=== PATIENT | female | born 1930 | race Caucasian/White ===

== ENCOUNTER 2019-10-22 12:10 | Inpatient (IN) ==
[2019-10-22] MEDS ORDERED: DUONEB (A & A) INH ONE (12:29)
[2019-10-22] MEDS ORDERED: ZOSYN 4.5 GM in NS 100 ML IV ONE (12:29)
[2019-10-22] MEDS ORDERED: VANCOMYCIN 1 GM/NS 1 GM/250 ML IVPB IV ONE (12:29)
[2019-10-22] MEDS ORDERED: NS 500 ML IV ONE (12:30)
--- NOTE | 2019-10-22 13:15 | Diag Imaging Result Doc PS360 ---
EXAM: CHEST-1 VIEW - 10/22/2019 HISTORY: cough, fever TECHNIQUE: Portable chest one view COMPARISON: 07/08/2019 FINDINGS: There is chronic elevation right hemidiaphragm similar to prior. There is ill-defined infrahilar infiltrate on the left. There is a small left pleural effusion. There is no evidence of pneumothorax. Heart size appears within normal limits. There is possible calcified mitral valve annulus noted. IMPRESSION: Ill-defined infrahilar infiltrate on the left. Small left pleural effusion. Electronically signed by Jeffrey Ureña 10/22/2019 1:13 PM
[2019-10-22 13:33] LABS: URINE SOURCE CATH
[2019-10-22 13:44] LABS: BILIRUBIN URINE NEGATIVE (NEGATIVE); BLOOD URINE NEGATIVE (NEGATIVE); COLOR YELLOW; GLUCOSE URINE NEGATIVE (NEGATIVE); KETONE URINE NEGATIVE (NEGATIVE); LEUKOCYTES URINE LARGE (NEGATIVE); NITRITE URINE NEGATIVE (NEGATIVE); PROTEIN URINE NEGATIVE (NEGATIVE); SP GRAVITY URINE 1.009; TURBIDITY URINE CLEAR (CLEAR); UROBILINOGEN URINE NORMAL (NORMAL)
[2019-10-22 13:46] LABS: UR EPITHELIAL CELLS <10 /HPF (<10); URINE BACTERIA 4+ /HPF; URINE RBC <10 /HPF (<10); URINE WBC TNTC /HPF (<10)
[2019-10-22 13:46] LABS: BASO# 0.04 X1000 (0.0-0.2); BASO% 0.3 % (0.0-0.8); EOS# 0.05 X1000 (0.0-0.7); EOS% 0.4 % (0.0-10.0); HEMATOCRIT 36.1 % (37.0-47.0); IMM GRAN# 0.03 X1000 (0.0-0.04); IMM GRAN% 0.2 % (0.0-0.5); LYMPH# 1.14 X1000 (1.2-3.4); LYMPH% 8.6 % (20.5-51.1); MCH 28.9 PG (27-31); MCHC 30.5 g/dL (33-37); MONO# 0.96 X1000 (0.11-0.59); MONO% 7.2 % (1.7-9.3); MPV 11.9 FL (7.4-10.4); NEUT# 11.03 X1000 (1.4-6.5); NEUT% 83.3 % (42.2-75.2); PLT 243 X1000 (130-400); RDW 14.2 % (11.5-14.5); WBC 13.25 X1000 (4.8-10.8)
[2019-10-22 13:51] LABS: INR 1.1; PROTIME 14.3 Seconds (11.0-16.0)
[2019-10-22 13:52] LABS: PTT 27.4 Seconds (22.3-41.8)
[2019-10-22 14:03] LABS: ALB/GLOB RATIO 0.8; ALBUMIN 2.9 g/dL (3.5-5.0); CALCIUM 9.5 mg/dL (8.8-10.2); CREATININE 1.2 mg/dL (0.5-0.9); MAGNESIUM 2.1 mg/dL (1.5-2.7); POTASSIUM 4.2 mmol/L (3.5-5.1); TOTAL BILIRUBIN 0.16 mg/dL (0.20-1.00); TOTAL PROTEIN 6.5 g/dL (6.3-8.3)
[2019-10-22] MEDS ORDERED: LASIX IV ONE (14:11)
[2019-10-22] MEDS ORDERED: SOLU-MEDROL IV ONE (14:15)
[2019-10-22] MEDS ORDERED: LEVAQUIN 750 MG/D5W 750 MG/150 ML IVPB IV ONE (14:15)
[2019-10-22] MEDS ORDERED: TYLENOL PO PRN (14:19)
--- NOTE | 2019-10-22 14:19 | PROVIDER DOCUMENTATION ---
This chart was entered by Hannah Cohn Scribe, acting as scribe for Turner Zaidi MD. HPI-General Adult - General Chief Complaint: Cough Stated Complaint: COUGH Time Seen by Provider: 10/22/19 12:22 Source: RN/, EMS Allergies/Adverse Reactions: Patient Allergies Allergy/AdvReac Type Severity Reaction Status Date / Time pentazocine lactate * Allergy Unknown Unknown Verified 07/08/19 09:34 [From [facility]] Home Medications: Home Medication List Medication Instructions Recorded Confirmed Last Taken Type Aspirin [Ecotrin] 81 mg PO DAILY 03/15/16 12/16/17 12/16/17 08:00 History Calcitonin,Nelson,Synthetic 1 spray INH DIRECTED 03/15/16 12/16/17 12/16/17 08:00 History [Miacalcin] Calcium Carbonate/Vit D3 [Caltrate 1 tab PO BID 03/15/16 12/16/17 12/16/17 08:00 History 600 + D] Docusate Sodium [Colace] 100 mg PO BID 03/15/16 12/16/17 12/15/17 21:00 History Donepezil [Aricept] 10 mg PO DAILY 03/15/16 12/16/17 12/16/17 08:00 History Felodipine [Felodipine ER] 5 mg PO DAILY 03/15/16 12/16/17 12/15/17 08:00 Histo ry Iron Carbonyl/Ascorbic Acid 1 tab PO DAILY 03/15/16 12/16/17 07/14/17 09:00 History [Icar-C] Magnesium Hydroxide [Milk of 30 ml PO DIRECTED 03/15/16 12/16/17 12/16/17 08:00 History Magnesia] Melatonin 3 mg PO QHS 03/15/16 12/16/17 12/15/17 21:00 History Memantine HCl [Namenda] 10 mg PO BID 03/15/16 12/16/17 07/14/17 21:00 History Multivit,Fe,Ca,FA & Min [Thera M 1 tab PO DAILY 03/15/16 12/16/17 12/16/17 08:00 History Plus] Ranitidine [Zantac] 150 mg PO BID 03/15/16 12/16/17 12/16/17 08:00 History SIMVAstatin [Zocor] 40 mg PO QHS 03/15/16 12/16/17 12/15/17 21:00 History Potassium Chloride E.r. [Klor-Con] 20 meq PO BID #0 03/23/16 12/16/17 12/16/17 08:00 Rx Fluvoxamine [Luvox] 100 mg PO HS 10/25/17 12/16/17 12/15/17 21:00 History Prednisone 5 mg PO DAILY 10/25/17 12/16/17 12/16/17 08:00 History Furosemide [Lasix] 20 mg PO DAILY #30 tab 11/01/17 12/16/17 12/16/17 08:00 Rx Gabapentin [Neurontin] 300 mg PO TID #90 cap 11/01/17 12/16/17 12/16/17 08:00 Rx Hydrocodone/APAP 5 mg/325 mg 1 ea PO Q4-6H PRN PRN #10 tab 11/01/17 12/16/17 12/16/17 08:00 Rx [Elliott-5] Ciprofloxacin [Cipro] 250 mg PO BID #14 tab 07/08/19 Unknown Rx - History of Present Illness -Gen Adult Nature of Presenting Problems: pt is an 88 yowf arriving via ems w/cc rn rpts ems sts pt's family wants her evaluated for increased cough and congestion. pt has hx of copd, wears 3L o2 constantly, and alz and is at baseline in rom. pt sts she quit smoking. pt last breathing tx 1 hr area captain. pt resides in intermediate. pt is [facility].pt followed by Dr. Mac. allergy to pentazocine Location of Pain/Injury: reports: none Pain Radiation: reports: no radiation Quality of Pain: reports: none Severity: reports: mild Onset/Duration: reports: unsure Timing: reports: still present Context/Activities at Onset: reports: none Modifying Factors: improves with: nothing Associated Symptoms: reports: cough, sinus congestion/drainage Review of Systems - Adult - REVIEW OF SYSTEMS - ADULT ROS:: limited per condition Constitutional: reports: no symptoms reported. denies: chills, fever, fatique Eyes: reports: no symptoms reported Ears, Nose, Mouth & Throat: reports: see HPI, sinus problem (congestion). denies: ear pain, nose pain, throat pain Cardiovascular: reports: no symptoms reported Respiratory: reports: see HPI, cough. denies: dyspnea on exertion, shortness of breath, wheezing Gastrointestinal: reports: no symptoms reported Genitourinary: reports: no symptoms reported Musculoskeletal: reports: no symptoms reported Integumentary: reports: no symptoms reported Neurological: reports: no symptoms reported Psychiatric: reports: no symptoms reported Endocrine: reports: no symptoms reported Hematologic/Lymphatic: reports: no symptoms reported Allergic/Immunologic: reports: no symptoms reported All Other Systems: Reviewed and Negative Past History - Adult - PAST MEDICAL HISTORY-ADULT Review of Records: reports: Nursing Assessment Review, Medications Reviewed, Social history reviewed & non-contributory. Major Childhood Illnesses: reports: denies history Cardiovascular: reports: CHF, HTN, hyperlipidemia Respiratory: reports: COPD Gastrointestinal: reports: cancer (colon), GERD, GI bleed (lower/required blood) Obstetrical/Gynecological: reports: uterine/ovarian cancer Genitourinary: reports: denies history Musculoskeletal: reports: denies history Neurological: reports: Alzheimer's, CVA, dementia, TIA Psychiatric: reports: anxiety, other (insomnia) Endocrine/Immune: reports: denies history Other Conditions: reports: denies history - PRIOR SURGERIES/PROCEDURES Surgical/Procedure History: reports: hysterectomy, bowel surgery (colon resection), joint replacement (shoulder), other - PRIOR HOSPITALIZATIONS Prior Hospitalizations: reports: for similar symptoms - IMMUNIZATION STATUS Childhood Immunizations: See Nurse Assessment Flu Vaccine: See Nurse Assessment - FAMILY HISTORY Family History: reviewed, not pertinent - SOCIAL HISTORY Smoking: other (former smoker) Substance Use: none/never Physical Exam-General - PHYSICAL EXAM-ADULT Initial Vital Signs Reviewed: Yes - CONSTITUTIONAL General Appearance: appears well, alert, no apparent distress, thin. negative: lethargic, slow to respond, obtunded - EYES Eyes: pink conjunctivae, other (mild pinpoint pupils). negative: PERRL/EOMI - HEAD, EARS, NOSE, MOUTH & THROAT HENMT: normocephalic/atraumatic, hearing deficit. negative: moist mucous membranes (dry mucous membranes), normal ENT inspection, angioedema - NECK Neck: non-tender, full range of motion, supple, normal inspection - RESPIRATORY Respiratory: chest non-tender, normal breath sounds, no pleuratic chest pain, no respiratory distress, no accessory muscle use, rhonchi (diffuse), increased rate (mild tachypnea). negative: lungs clear, accessory muscle use, crackles, rales, pain on inspiration, pleural rub, retractions - CARDIOVASCULAR Cardiovascular: normal peripheral pulses, no edema, no gallop, no JVD, no murmur , extra beats (occ ectopic beats). negative: regular rate, rhythm, friction rub, irregularly irregular - GASTROINTESTINAL (ABDOMEN) Abdominal Exam: normal bowel sounds, non tender, soft - MUSCULOSKELETAL Back Exam: normal inspection Extremity: normal range of motion, non-tender, normal inspection, normal c apillary refill. negative: pedal edema, slow capillary refill, swelling, tenderness Peripheral Pulses: radial (R): 2+, radial (L): 2+ - SKIN Integumentary: normal color, normal turgor, warm/dry - NEUROLOGIC Neurologic: grossly normal, no motor/sensory deficits, other (pt is at baseline, hx alz). negative: aphasia, focal weakness, motor weakness - PSYCHIATRIC Psych/Mental Status: normal mood/affect, normal thought content, normal thought process, oriented x 3 Progress - PLAN OF CARE/RESULTS Progress/Plan/Lab Results: Vital Signs - 8 hr 10/22/19 12:20 Temperature 98.5 F Pulse Rate 87 Respiratory Rate 20 Blood Pressure 118/65 O2 Sat by Pulse Oximetry 97 Result Diagrams: 10/22/19 12:58 10/22/19 12:58 - REASSESSMENT Reassessment #1 Time Reassessed: 14:15 Status: improving (Patient has HCAP and UTI, sepsis without end organ damage, and also has exacerbation of CHF/ Patient givne IVF and lasix, IV zosyn/vanc/levaquin. Also given duoneb and solumedrol) - XRAY 1 XRAY Study: Chest Impression: Abnormal, See EMR Report (EXAM: CHEST-1 VIEW - 10/22/2019 HISTORY: cough, fever TECHNIQUE: Portable chest one view COMPARISON: 07/08/2019 FINDINGS: There is chronic elevation right hemidiaphragm similar to prior. There is ill-defined infrahilar infiltrate on the left. There is a small left pleural effusion. There is no evidence of pneumothorax. Heart size appears within normal limits. There is possible calcified mitral valve annulus noted. IMPRESSION: Ill-defined infrahilar infiltrate on the left. Small left pleural effusion. Electronically signed by Jeffrey Ureña 10/22/2019 1:13 PM) - CONSULTS/PCP/HOSPITALIST Notification #1 *Consult/PCP/Hospitalist*: Topher Time Discussed: 14:14 Consult Disposition: Admit Departure - Departure Date of Disposition Decision: 10/22/19 Time of Disposition Decision: 14:17 DIAGNOSIS: UTI (urinary tract infection), bacterial Left lower lobe pneumonia Qualifiers: Pneumonia type: due to unspecified organism Qualified Code(s): J18.1 - Lobar pneumonia, unspecified organism Sepsis without acute organ dysfunction Qualifiers: Sepsis type: sepsis due to unspecified organism Qualified Code(s): A41.9 - Sepsis, unspecified organism Acute exacerbation of CHF (congestive heart failure) Qualifiers: Heart failure type: combined systolic and diastolic Qualified Code(s): I50.43 - Acute on chronic combined systolic (congestive) and diastolic (congestive) heart failure Disposition: ADMITTED INPATIENT 09 Certified Medical Emergency: Emergent Condition: Fair Referrals and Follow-Ups: Richard Obando MD [Primary Care Provider] - - Critical Care Note This patient required my direct & personal management of CC.: Yes Total Time (mins): 40 (multiple meds givne for complex diagnosis and sepsis/CHF/HCAP/UTI) Critical Care Statement: This patient required my direct personal management to treat or rule out processes, the absence of which, could potentiallly result in sudden, clinically significant life or limb threatening deterioration. Attestation - Physician/ BRAD Attestation Patient care was provided by Advanced Practice Provider:: No The physician spent face to face time with patient:: Yes Advanced Practice Provider documentation review:: Supervising physician onsite and consulted in the evaluation and care of this patient. The physician did have a face to face encounter with the patient. This chart was documented by the indicated scribe, (Hannah Cohn Scribe) and accurately reflects the services I performed and decisions made by me, Turner Zaidi MD, as attested by the provider's signature.
[2019-10-22] MEDS ORDERED: NS 1,000 ML IV ONE (14:21)
[2019-10-22 14:51] LABS: ALLEN TEST YES; BE 12.4 mmoll (-3.0-3.0); BLOOD TYPE ARTERIAL; HCO3-(ACT) 34.6 mmoll (20.0-26.0); METHB 0.8 % (0.0-1.5); O2(CT) 14.8 mL/dL (15.0-23.0); PO2(98.6) 105 mmHg (60-100); SAMPLE BLOOD; THB 10.7 g/dL (11.5-17.4); pH(98.6) 7.42 (7.35-7.45)
[2019-10-22 14:52] LABS: MODALITY CANNULA; PCO2(98.6) 60 mmHg (35-45)
[2019-10-22] MEDS: ZOFRAN PO PRN (15:04)
[2019-10-22] MEDS ORDERED: DUONEB (A & A) INH SCH (15:30)
[2019-10-22] MEDS: DUONEB (A & A) INH SCH ×2 (19:33→23:05)
[2019-10-22 21:23] LABS: HEMOGLOBIN A1C 5.7 % (4.8-6.0)
--- NOTE | 2019-10-22 21:57 | HISTORY AND PHYSICAL ---
CHIEF COMPLAINT: Cough and chest congestion. Ms Phillip, 88-year-old white female patient, resident of [facility], complaining of increasing cough, chest congestion, mild shortness of breath, chest soreness when she coughs. The patient was brought to the emergency room where she found to have pneumonia and also UTI. There was concern about sepsis and patient was admitted for further care. The patient's oral intake was poor. Unquantified weight loss. Patient did have minimally increased shortness of breath, poor oral intake. According to family, the patient also had increasing confusion and disorientation at the intermediate. She did have chest soreness when she coughs, vague abdominal pain. No sinus drainage. The patient did have a scratchy throat. She denied any hemoptysis. No dysphagia or odynophagia. The patient does have vague abdominal pain. No nausea or vomiting. No diarrhea, blood, or mucus in the stool. The patient does have chronic diffuse abdominal pain, at times back pain, pain in the shoulder. The patient does have chronic pain on pain medication. No heat or cold intolerance. At times, polyuria, polydipsia. The patient does feel fatigued, tired, and no energy. The patient does have at times problems with recent memory, situational depression. ALLERGIES: Pentazocine lactate. CURRENT MEDICATIONS: Includes aspirin, Miacalcin nasal spray, calcium with vitamin D, Colace, Aricept, Namenda, felodipine, Icar-C, milk of magnesia, melatonin, Namenda, multivitamin, Zantac, Zocor, potassium, Luvox, prednisone, Lasix, Neurontin, [place]. PAST MEDICAL HISTORY: Significant for Alzheimer type dementia, hypertension, hyperlipidemia, congestive heart failure, osteoarthritis, chronic pain, gastritis, polymyalgia rheumatica, congestive heart failure, history suggestive of COPD, patient has a history of colon cancer and surgery. PERSONAL HISTORY: Single, nonsmoker. Denied alcohol or substance abuse. Needs assistance in activities of daily living. FAMILY HISTORY: Significant for arthritis, COPD. REVIEW OF SYSTEMS: As per HPI. PHYSICAL EXAMINATION: GENERAL: Elderly white female patient in mild distress. VITAL SIGNS: Blood pressure 118/65, pulse 87, respirations 20, temperature 98.5 degrees. SKIN: Senile turgor. HEENT: Head atraumatic, normocephalic. [place] conjunctivae. Anicteric sclerae. Extraocular muscle movement normal. Fundus cannot be penetrated. Good oral hygiene. No tonsillopharyngeal congestion or exudate. Ears and nose benign. NECK: Supple. No JVD, thyromegaly or lymphadenopathy. CHEST: Bilateral good air entry present. Few inspiratory crepitation left base. CARDIOVASCULAR: S1 and S2 heard. No gallop or thrill, 2/6 systolic murmur at the apex. ABDOMEN: Soft, scaphoid. Bowel sounds present. Vague tenderness in the epigastrium. EXTREMITIES: No cyanosis, clubbing. No acute DVT. LOOM SETTER FOURDRINIER: Alert, awake, able to move all 4 limbs. Crepitation both the knee joints. Movement of shoulder painful and limited. LAB DATA: Chest x-ray did reveal ill-defined infrahilar infiltrate on the left, small left pleural effusion. CBC did reveal leukocytosis with left shift, anemia most likely of chronic disease. PT and PTT were normal. ABG revealed pH 7.42, pCO2 was 60, PO2 105, this was done on FiO2 of 32%. BUN 24, creatinine 1.2. ProBNP was 3560. Troponin minimally elevated. Plasma lactate was 2.3. Urinalysis did reveal large leukocyte, too numerous to count WBC, 4+ bacteria suggestive of UTI. Patient presented with left lower lobe pneumonia, UTI. Her other problems include hypertension, hyperlipidemia, COPD, dementia, polymyalgia rheumatica, osteoarthritis, gastritis. PLAN: Admit the patient. IV antibiotics. The patient did receive IV Lasix. Close observation. Pulmonary toilet. Overall plan discussed with patient and family. cc: Richard Obando MD
[2019-10-23] MEDS: ZOSYN 3.375 GM in NS 50 ML IV SCH ×5 (00:18→17:38)
[2019-10-23] MEDS: CALTRATE 600 + D PO SCH ×3 (01:58→20:35)
[2019-10-23] MEDS: ZOCOR PO SCH ×2 (01:59→20:35)
[2019-10-23] MEDS: ZOLOFT PO SCH ×2 (01:59→20:35)
[2019-10-23] MEDS: SOLU-MEDROL IV SCH ×3 (01:59→06:59)
[2019-10-23] MEDS: COLACE PO SCH ×3 (01:59→20:35)
[2019-10-23] MEDS: NAMENDA PO SCH ×3 (02:00→20:35)
[2019-10-23] MEDS: KLOR-CON PO SCH ×3 (02:00→20:35)
[2019-10-23] MEDS: REMERON PO SCH ×2 (02:00→20:35)
[2019-10-23] MEDS: METAMUCIL POWDER PACKET PO SCH ×2 (02:00→20:34)
[2019-10-23] MEDS: FORTICAL NAS SCH ×2 (02:02→09:31)
[2019-10-23] MEDS: PROTONIX IV SCH ×3 (02:02→18:50)
[2019-10-23] MEDS: NEURONTIN PO SCH ×4 (02:02→17:38)
[2019-10-23] MEDS: DUONEB (A & A) INH SCH ×6 (03:20→23:15)
[2019-10-23] MEDS: LOVENOX SUBQ SCH (05:58)
[2019-10-23 07:26] LABS: HEMATOCRIT 31.5 % (37.0-47.0); HEMOGLOBIN 9.7 g/dL (12.0-16.0); MCH 29.2 PG (27-31); MCHC 30.8 g/dL (33-37); MCV 94.9 FL (81-99); MPV 11.9 FL (7.4-10.4); RBC 3.32 XMIL (4.2-5.4); RDW 13.9 % (11.5-14.5); WBC 11.36 X1000 (4.8-10.8)
--- NOTE | 2019-10-23 07:30 | PROGRESS NOTE ---
DATE: 10/23/2019 SUBJECTIVELY: Ms. Phillip is doing better. The patient was very restless last night. She was trying to pull her IV and telemetry. The patient had increasing confusion; no high-grade fever or chills. No chest pain or palpitations. Blood pressure was low normal. OBJECTIVE: Her vital signs noted.Neck: Is supple. No JVD. Lungs: Bilateral occasional wheezing. CVS: S1 and S2 heard. Abdomen: Soft. No distention. Bowel sounds present. Extremities: No cyanosis, clubbing. No acute DVT. REST ROOM ATTENDANT: Alert, awake but confused. CONSIDERATION: Pneumonia urinary tract infection. Low blood pressure. We will continue current treatment. I am going to stop the Lasix and Plendil; also discontinue her Solu-Medrol. Because of agitation we will monitor patient closely. Continue antibiotics check appropriate labs. Overall plan discussed with the family, and they are in agreement. Her medical problems includes pneumonia, UTI, dementia and hypertension but her blood pressure is low. Depression, polymyalgia rheumatica and osteoarthritis. cc: Richard Obando MD
[2019-10-23 07:56] LABS: AGAP 7; ALB/GLOB RATIO 0.9; ALKALINE PHOSPHATASE 106 U/L (32-104); BUN 25 mg/dL (8-22); CALCIUM 8.4 mg/dL (8.8-10.2); CHLORIDE 100 mmol/L (98-107); COSMO 294; CREATININE 1.8 mg/dL (0.5-0.9); ESTIMATED GFR 26; GLUCOSE 110 mg/dL (70-104); GOT 22 U/L (10-30); GPT 7 U/L (10-36); POTASSIUM 3.9 mmol/L (3.5-5.1); SODIUM 145 mmol/L (136-145); TCO2 38 mmol/L (25-35); TOTAL BILIRUBIN < 0.15 mg/dL (0.20-1.00); TOTAL PROTEIN 6.2 g/dL (6.3-8.3)
[2019-10-23] MEDS ORDERED: ARICEPT PO SCH (09:00)
[2019-10-23] MEDS ORDERED: PLENDIL PO SCH (09:00)
[2019-10-23] MEDS ORDERED: LASIX PO SCH (09:00)
[2019-10-23] MEDS ORDERED: VANCOMYCIN IV PER PHARMACY MISC SCH (09:00)
[2019-10-23] MEDS: ICAR-C PO SCH (09:32)
[2019-10-23] MEDS: PREDNISONE PO SCH (09:32)
[2019-10-23] MEDS: ASPIRIN EC PO SCH (09:33)
[2019-10-23] MEDS: THERA M PLUS PO SCH (09:33)
[2019-10-23] MEDS: POTASSIUM CHLORIDE 10 MEQ in NS 1,000 ML IV SCH ×2 (09:33→09:34)
[2019-10-23] MEDS: DOXYCYCLINE PO SCH ×3 (11:31→23:45)
[2019-10-23] MEDS: NORCO-5 PO PRN ×3 (11:31→20:53)
[2019-10-24] MEDS: ZOSYN 3.375 GM in NS 50 ML IV SCH ×4 (00:15→17:47)
[2019-10-24] MEDS: POTASSIUM CHLORIDE 10 MEQ in NS 1,000 ML IV SCH ×2 (00:15→21:39)
[2019-10-24] MEDS: DUONEB (A & A) INH SCH ×6 (03:20→23:24)
[2019-10-24] MEDS: LOVENOX SUBQ SCH (06:21)
[2019-10-24] MEDS: NORCO-5 PO PRN (06:24)
[2019-10-24 07:36] LABS: BASO# 0.03 X1000 (0.0-0.2); BASO% 0.3 % (0.0-0.8); EOS# 0.34 X1000 (0.0-0.7); EOS% 2.8 % (0.0-10.0); HEMOGLOBIN 9.2 g/dL (12.0-16.0); IMM GRAN# 0.04 X1000 (0.0-0.04); IMM GRAN% 0.3 % (0.0-0.5); LYMPH# 2.26 X1000 (1.2-3.4); LYMPH% 18.9 % (20.5-51.1); MCH 28.3 PG (27-31); MCHC 29.7 g/dL (33-37); MCV 95.4 FL (81-99); MONO# 1.35 X1000 (0.11-0.59); MONO% 11.3 % (1.7-9.3); MPV 11.6 FL (7.4-10.4); NEUT# 7.93 X1000 (1.4-6.5); NEUT% 66.4 % (42.2-75.2); PLT 218 X1000 (130-400); RBC 3.25 XMIL (4.2-5.4); RDW 14.1 % (11.5-14.5); WBC 11.95 X1000 (4.8-10.8)
[2019-10-24 08:27] LABS: AGAP 11; ALB/GLOB RATIO 0.8; ALBUMIN 2.6 g/dL (3.5-5.0); ALKALINE PHOSPHATASE 84 U/L (32-104); BUN 27 mg/dL (8-22); CALCIUM 7.9 mg/dL (8.8-10.2); CHLORIDE 104 mmol/L (98-107); COSMO 290; CREATININE 1.5 mg/dL (0.5-0.9); ESTIMATED GFR 33; GLUCOSE 94 mg/dL (70-104); GOT 22 U/L (10-30); GPT 8 U/L (10-36); LIPASE 20 U/L (13-60); MAGNESIUM 1.8 mg/dL (1.5-2.7); PHOSPHORUS 1.9 mg/dL (2.7-4.5); SODIUM 143 mmol/L (136-145); TCO2 28 mmol/L (25-35); TOTAL BILIRUBIN < 0.15 mg/dL (0.20-1.00); TOTAL PROTEIN 5.9 g/dL (6.3-8.3)
--- NOTE | 2019-10-24 10:25 | PROGRESS NOTE ---
DATE: 10/24/2019 SUBJECTIVE: Ms. Phillip is doing fair. The patient had significant chest wall pain. She did have some hemoptysis. Her pain more located on the left chest wall. Oral intake is poor. No nausea or vomiting. The patient does have chronic abdominal pain, unquantified weight loss. No diarrhea, blood or mucus in the stool. I discontinued her Plendil because of low normal blood pressure. Her history part was limited. The patient does have chronic pain. Vital signs: Noted. Neck: Is supple. No JVD. Lungs: Bibasilar crepitations. Few inspiratory crepitation left lung. CVS: S1 and S2 heard. Abdomen: Soft, globular. Bowel sounds present. Vague tenderness epigastrium. Extremities: No cyanosis, clubbing. No acute DVT. ASSOCIATE ART DIRECTOR: Alert, awake, able to move all 4 limbs. CONSIDERATION: Cough. Patient did have some hemoptysis. Patient had pneumonia. I am going to get CT scan of the chest for further evaluation. Chronic abdominal pain, nausea, vomiting. The patient is on proton pump inhibitor. Patient is also on [place]. I am going to add morphine for better comfort. Diffuse osteoarthritis, peripheral neuropathy, gastritis and reflux disease, situational depression, polymyalgia. Overall plan discussed at length with the patient and family. They are in agreement. After reviewing the CT scan, I am going to repeat blood work today then will make further recommendations. Her blood culture was positive but I think it was due to contamination. I am going to stop Zocor, Namenda and Aricept. cc: Richard Obando MD
--- NOTE | 2019-10-24 10:58 | Diag Imaging Result Doc PS360 ---
EXAM: CT THORAX/ABD/PELVIS W/O CON INDICATION: abd. pain TECHNIQUE: This exam was performed using automated exposure control, adjustment of mA or kV according to patient size, and/or use of iterative reconstruction technique. COMPARISON: CT abdomen and pelvis dated 12/16/2017 and CTA chest dated 08/13/2014 FINDINGS: CHEST: There are small patchy nodular airspace opacities seen throughout both lungs. This could represent an infectious process. However, given the nodularity, a neoplastic process cannot be excluded. Follow-up chest CT is recommended. For reference, there is an 8.8 cm nodule at the periphery of the lingula near the lung base on image 58 of series 3. There are bilateral small pleural effusions and there is significant bibasilar atelectasis bilaterally. There is bronchial mucous plugging at both lung bases. There is stable cardiomegaly. There are multiple calcified mediastinal and hilar lymph nodes indicating prior granulomatous disease. There is extensive coronary artery calcification and mitral valve calcification. The bones are osteopenic. There is an old right humeral head deformity related to previous trauma. There is left shoulder arthroplasty hardware. There are a few chronic thoracic spine compression deformities. ABDOMEN/PELVIS: There are multiple calcified granulomata throughout the liver and spleen. There are several vague low dense foci associated with the liver parenchyma. They appear slightly rounded and cannot be appreciated on the previous study. For reference, one of the largest lesions is near the dome of the liver and the right hepatic lobe measuring 3.6 x 2.8 cm axially. Although it is possible that this represents regions of focal fatty infiltration, metastatic lesions cannot be excluded. Correlation with contrast-enhanced CT of the abdomen and pelvis is suggested if not contraindicated. The pancreas is atrophic and is essentially unremarkable as imaged with unenhanced CT, otherwise. There is low dense thickening of the left adrenal gland that is also seen on the previous study most likely representing adrenal hyperplasia or an underlying adenoma. There are a couple of right renal cyst. There is a 2.3 cm hyperdense nodule at the lower left kidney (2.1 cm previously). This could represent a blood filled or protein filled cyst. However, it is nonspecific on unenhanced CT. I solid renal mass cannot completely be excluded. There is no hydronephrosis. There is a Hill catheter in the urinary bladder. The urinary bladder is essentially unremarkable, otherwise. There has been a prior hysterectomy. There is abundant stool in the colon suggesting possible mild to moderate constipation. There is no obstructive bowel pattern. There is a stable prominent hiatal hernia. The remainder of the GI tract is grossly unremarkable as imaged. There is extensive aortoiliac atherosclerotic calcification. There is multilevel spondylosis and there are several chronic compression deformities involving the lumbar spine. There is no evidence of acute osseous abnormality. IMPRESSION: 1.Multiple nodular airspace opacities throughout both lungs. Although these may represent infectious nodules, a neoplastic process cannot completely be excluded. Follow-up CT is recommended to assess stability. 2.Bibasilar mucous plugging and bibasilar atelectasis with small bilateral effusions. 3.Vague somewhat rounded low dense foci associated with the liver parenchyma. These are not identified previously. Although it is possible this represents multifocal fatty infiltration, metastatic disease cannot be excluded. Consider correlation with contrast-enhanced CT if not contraindicated. 4.Approximately stable nodule at the lower left kidney that could represent a blood filled cyst but is nonspecific on unenhanced CT. 5.Suggestion of constipation. 6.Other incidental/nonacute findings detailed above. Electronically signed by Virgil Cohn 10/24/2019 10:56 AM
[2019-10-24] MEDS: THERA M PLUS PO SCH (11:03)
[2019-10-24] MEDS: COLACE PO SCH ×2 (11:03→21:40)
[2019-10-24] MEDS: ICAR-C PO SCH (11:03)
[2019-10-24] MEDS: CALTRATE 600 + D PO SCH ×2 (11:03→21:40)
[2019-10-24] MEDS: FORTICAL NAS SCH (11:04)
[2019-10-24] MEDS: KLOR-CON PO SCH ×2 (11:04→21:40)
[2019-10-24] MEDS: ASPIRIN EC PO SCH (11:04)
[2019-10-24] MEDS: PREDNISONE PO SCH (11:04)
[2019-10-24] MEDS: DOXYCYCLINE PO SCH ×2 (11:07→21:40)
[2019-10-24] MEDS: NEURONTIN PO SCH ×3 (11:07→21:41)
[2019-10-24] MEDS ORDERED: LINZESS PO ONE ×2 (12:58→18:00)
[2019-10-24] MEDS: MUCOMYST 20% INH SCH ×2 (16:10→20:03)
[2019-10-24] MEDS: PROTONIX IV SCH (17:51)
[2019-10-24] MEDS: METAMUCIL POWDER PACKET PO SCH (21:40)
[2019-10-24] MEDS: REMERON PO SCH (21:40)
[2019-10-24] MEDS: ZOLOFT PO SCH (21:41)
[2019-10-25] MEDS: ZOSYN 3.375 GM in NS 50 ML IV SCH ×4 (00:40→17:24)
[2019-10-25] MEDS: DOXYCYCLINE PO SCH ×3 (02:59→23:08)
[2019-10-25] MEDS ORDERED: VANCOMYCIN 1 GM/NS 1 GM/250 ML IVPB IV SCH (03:00)
[2019-10-25] MEDS: POTASSIUM CHLORIDE 10 MEQ in NS 1,000 ML IV SCH ×2 (03:00→13:23)
[2019-10-25] MEDS: NORCO-5 PO PRN (03:07)
[2019-10-25] MEDS: DUONEB (A & A) INH SCH ×6 (03:31→23:38)
[2019-10-25] MEDS ORDERED: LINZESS PO ONE (07:14)
[2019-10-25] MEDS ORDERED: MILK OF MAGNESIA PO ONE (07:14)
[2019-10-25] MEDS: LOVENOX SUBQ SCH (07:32)
[2019-10-25] MEDS: MUCOMYST 20% INH SCH ×2 (07:42→19:19)
[2019-10-25] MEDS: ICAR-C PO SCH (08:20)
[2019-10-25] MEDS: CALTRATE 600 + D PO SCH ×2 (08:20→22:08)
[2019-10-25 08:21] LABS: AGAP 7; ALB/GLOB RATIO 0.9; ALBUMIN 2.7 g/dL (3.5-5.0); ALKALINE PHOSPHATASE 86 U/L (32-104); BUN 22 mg/dL (8-22); CALCIUM 7.8 mg/dL (8.8-10.2); CHLORIDE 109 mmol/L (98-107); CK PROFILE 20 U/L (24-173); COSMO 289; ESTIMATED GFR 52; GLUCOSE 86 mg/dL (70-104); GOT 22 U/L (10-30); GPT 9 U/L (10-36); MAGNESIUM 1.9 mg/dL (1.5-2.7); POTASSIUM 4.1 mmol/L (3.5-5.1); SODIUM 144 mmol/L (136-145); TCO2 28 mmol/L (25-35); TOTAL BILIRUBIN < 0.15 mg/dL (0.20-1.00); TOTAL PROTEIN 5.6 g/dL (6.3-8.3)
[2019-10-25] MEDS: FORTICAL NAS SCH (08:21)
[2019-10-25] MEDS: COLACE PO SCH ×2 (08:21→22:08)
[2019-10-25] MEDS: THERA M PLUS PO SCH (08:21)
[2019-10-25] MEDS: PREDNISONE PO SCH (08:21)
[2019-10-25] MEDS: ASPIRIN EC PO SCH (08:21)
[2019-10-25] MEDS: KLOR-CON PO SCH ×2 (08:21→22:09)
[2019-10-25] MEDS: PLENDIL PO SCH (08:22)
[2019-10-25] MEDS: MORPHINE IV PRN ×3 (08:26→17:37)
[2019-10-25] MEDS: NEURONTIN PO SCH ×3 (08:26→22:07)
--- NOTE | 2019-10-25 11:03 | PROGRESS NOTE ---
DATE: 10/25/2019 SUBJECTIVE: Ms. Phillip is doing fair. The patient still has cough with scanty sputum production. No high-grade fever. History part is limited. No nausea or vomiting. The patient did not have bowel movement yet. The patient does have dementia, at times confused and with hallucinations. Her CT scan results were reviewed OBJECTIVE: Vitals: Vital signs noted. Neck: Supple. No JVD. Lungs: Bibasilar crepitations. Heart: S1 and S2 heard. Abdomen: Soft. Globular. Bowel sounds present. Extremities: No cyanosis or clubbing. No acute DVT. TRACER LATHE SET UP OPERATOR: Alert, awake, able to move all 4 limbs. DIAGNOSTIC DATA: CT scan results reviewed and discussed with family. ASSESSMENT: 1. Bronchopneumonia. 2. Bibasilar mucus plugging and basilar atelectasis. 3. Osteoarthritis. 4. Constipation. 5. The patient does have dementia and confusion. 6. History of hypertension. PLAN: I am going to resume her felodipine, check appropriate labs, continue the rest of the treatment, and close observation. cc: Richard Obando MD
[2019-10-25] MEDS: SODIUM CHLORIDE 0.9% INJ SCH (17:25)
[2019-10-25] MEDS: PROTONIX IV SCH ×2 (17:25→18:06)
[2019-10-25] MEDS: ZOFRAN PO PRN (17:41)
[2019-10-25] MEDS ORDERED: LASIX IV ONE (19:51)
[2019-10-25] MEDS: ZOLOFT PO SCH (22:08)
[2019-10-25] MEDS: METAMUCIL POWDER PACKET PO SCH (22:08)
[2019-10-25] MEDS: REMERON PO SCH (22:08)
[2019-10-26] MEDS: ZOSYN 3.375 GM in NS 50 ML IV SCH ×4 (00:31→18:37)
[2019-10-26] MEDS: MORPHINE IV PRN (00:31)
[2019-10-26] MEDS: DUONEB (A & A) INH SCH ×6 (03:45→23:35)
[2019-10-26] MEDS: LOVENOX SUBQ SCH (05:32)
[2019-10-26] MEDS: POTASSIUM CHLORIDE 10 MEQ in NS 1,000 ML IV SCH ×2 (06:14→18:37)
[2019-10-26] MEDS: MUCOMYST 20% INH SCH ×2 (07:55→20:11)
[2019-10-26] MEDS ORDERED: NORCO-7.5 PO SCH (09:00)
[2019-10-26] MEDS: THERA M PLUS PO SCH (09:06)
[2019-10-26] MEDS: KLOR-CON PO SCH ×2 (09:06→20:46)
[2019-10-26] MEDS: CALTRATE 600 + D PO SCH ×2 (09:06→20:46)
[2019-10-26] MEDS: PLENDIL PO SCH (09:06)
[2019-10-26] MEDS: PREDNISONE PO SCH (09:06)
[2019-10-26] MEDS: ASPIRIN EC PO SCH (09:06)
[2019-10-26] MEDS: FORTICAL NAS SCH (09:07)
[2019-10-26] MEDS: COLACE PO SCH (09:08)
--- NOTE | 2019-10-26 09:11 | PROGRESS NOTE ---
DATE: 10/26/2019 SUBJECTIVE: Ms. Phillip is doing fair. She does have chronic pain, at times nausea. She vomited once yesterday. Oral intake is poor. No typical chest pain. Does have mild cough. The patient has Hill catheter. I gave her some Lasix. Urine output was fair. OBJECTIVE: Vital Signs: Noted. Neck: Supple. No JVD. Lungs: Bibasilar crepitations. Occasional wheezing. Cardiovascular: S1 and S2 heard. A 2/6 systolic murmur at the apex. Abdomen: Soft. No distention. Bowel sounds present. Mild epigastric tenderness, and diffuse abdominal tenderness. DIE CAST DIE MAKER: Alert, awake, able to move all 4 limbs. IMAGING AND LABORATORY DATA: Lab done yesterday noted. Her CT scan results were reviewed. I got CEA level. It was high. I am going to check her recent EGD and colonoscopy result. Most likely, the patient has GI the malignancy with metastasis. I had a lengthy discussion with the daughter, who is next of kin. Discussed about getting further evaluation and workup. The patient is an 88-year-old. According to daughter, the patient does not want any further intervention, so as per the daughter, we are going to keep the patient comfortable. I am going to optimize pain management, comfort care. If clinical condition permits, I am planning to [facility] the [facility]. cc: Richard Obando MD
[2019-10-26] MEDS: NEURONTIN PO SCH ×2 (09:31→16:38)
[2019-10-26] MEDS: MS CONTIN PO SCH ×2 (09:31→20:47)
[2019-10-26] MEDS: DOXYCYCLINE PO SCH (11:43)
[2019-10-26] MEDS: NORCO-7.5 PO PRN (16:44)
[2019-10-26] MEDS: PROTONIX IV SCH (18:37)
[2019-10-26] MEDS: SODIUM CHLORIDE 0.9% INJ SCH (18:37)
[2019-10-26] MEDS: DIFLUCAN 200 MG/NS 200 MG/100 ML IVPB IV SCH (20:45)
[2019-10-26] MEDS: ZOLOFT PO SCH (20:45)
[2019-10-26] MEDS: REMERON PO SCH (20:46)
[2019-10-26] MEDS: METAMUCIL POWDER PACKET PO SCH (20:46)
[2019-10-27] MEDS: DOXYCYCLINE PO SCH ×2 (00:06→11:51)
[2019-10-27] MEDS: COLACE PO SCH ×3 (00:06→22:26)
[2019-10-27] MEDS: ZOSYN 3.375 GM in NS 50 ML IV SCH ×4 (00:06→17:25)
[2019-10-27] MEDS: NEURONTIN PO SCH ×4 (00:07→17:58)
[2019-10-27] MEDS: DUONEB (A & A) INH SCH ×6 (03:30→23:55)
[2019-10-27] MEDS: LOVENOX SUBQ SCH (06:12)
[2019-10-27] MEDS: NORCO-7.5 PO PRN (06:13)
[2019-10-27] MEDS: MUCOMYST 20% INH SCH ×2 (07:52→20:05)
[2019-10-27] MEDS ORDERED: SEROQUEL PO SCH (09:00)
[2019-10-27] MEDS: ATIVAN PO SCH ×3 (09:52→17:58)
[2019-10-27] MEDS: CALTRATE 600 + D PO SCH ×2 (09:52→22:25)
[2019-10-27] MEDS: MS CONTIN PO SCH ×2 (09:52→22:26)
[2019-10-27] MEDS: ASPIRIN EC PO SCH (09:52)
[2019-10-27] MEDS: KLOR-CON PO SCH ×2 (09:53→22:27)
[2019-10-27] MEDS: FORTICAL NAS SCH (09:53)
[2019-10-27] MEDS: PLENDIL PO SCH (09:53)
[2019-10-27] MEDS: THERA M PLUS PO SCH (09:53)
[2019-10-27] MEDS: MORPHINE IV PRN ×3 (09:54→22:15)
[2019-10-27] MEDS: PREDNISONE PO SCH (10:03)
--- NOTE | 2019-10-27 11:48 | PROGRESS NOTE ---
DATE: 10/27/2019 SUBJECTIVE: Ms. Phillip is doing fair. The patient does have cough with scanty sputum production. The sputum is growing yeast. No high-grade fever or chills. Blood pressure was staying high, I resumed her Plendil. The patient does have dementia, confusion, at times restlessness. Her oral intake is poor. No nausea or vomiting. No fever or chills. The patient did have a bowel movement yesterday. V OBJECTIVE: Vital Signs: Noted. Neck: Supple. No JVD. Lungs: Bibasilar crepitations. Cardiovascular: S1 and S2 heard. Abdomen: Soft, globular, vague tenderness. Extremities: No cyanosis or clubbing. No acute DVT. SENIOR JAVA PROGRAMMER ANALYST: Alert, awake able to move all 4 limbs. ASSESSMENT AND PLAN: The patient does have bronchopneumonia, and possibility of GI malignancy cannot be ruled out. I requested records from boring machine operator double end for her last EGD and colonoscopy, still waiting. Dementia. Diffuse osteoarthritis. I started the patient on Diflucan I am going to optimize comfort care. At the family's request I am going to watch the patient over the weekend. If clinical condition permits we will plan discharging the patient to senior living on Wednesday. cc: Richard Obando MD
[2019-10-27] MEDS ORDERED: LASIX IV ONE (16:49)
[2019-10-27] MEDS: PROTONIX IV SCH (17:25)
--- NOTE | 2019-10-27 17:34 | Diag Imaging Result Doc PS360 ---
EXAM: CHEST-PORTABLE 10/27/2019 HISTORY: increasing lung congestion TECHNIQUE: Erect AP portable at 1702 COMMENT: There are bilateral pleural effusions and ill-defined interstitial and alveolar opacities over the lung bases which is worsened considerably since 10/22/2019. IMPRESSION: Pleural effusions and pulmonary edema. Electronically signed by Kalen Jennings 10/27/2019 5:32 PM
[2019-10-27] MEDS: DIFLUCAN 200 MG/NS 200 MG/100 ML IVPB IV SCH (21:27)
[2019-10-27] MEDS: REMERON PO SCH (22:26)
[2019-10-27] MEDS: METAMUCIL POWDER PACKET PO SCH (22:27)
[2019-10-27] MEDS: ZOLOFT PO SCH (22:27)
[2019-10-28] MEDS: ZOSYN 3.375 GM in NS 50 ML IV SCH ×4 (00:31→18:34)
[2019-10-28] MEDS: DUONEB (A & A) INH SCH ×6 (03:40→23:40)
[2019-10-28] MEDS: DOXYCYCLINE PO SCH ×3 (05:26→23:24)
[2019-10-28] MEDS: MORPHINE IV PRN ×3 (06:02→15:03)
[2019-10-28] MEDS: LOVENOX SUBQ SCH (06:03)
[2019-10-28] MEDS: MUCOMYST 20% INH SCH ×2 (08:05→19:45)
[2019-10-28 08:19] LABS: BASO# 0.03 X1000 (0.0-0.2); BASO% 0.2 % (0.0-0.8); EOS# 0.78 X1000 (0.0-0.7); EOS% 6.4 % (0.0-10.0); HEMOGLOBIN 8.8 g/dL (12.0-16.0); IMM GRAN# 0.02 X1000 (0.0-0.04); IMM GRAN% 0.2 % (0.0-0.5); LYMPH% 17.3 % (20.5-51.1); MCH 28.1 PG (27-31); MCHC 29.3 g/dL (33-37); MCV 95.8 FL (81-99); MONO# 1.41 X1000 (0.11-0.59); MONO% 11.6 % (1.7-9.3); MPV 11.2 FL (7.4-10.4); NEUT# 7.78 X1000 (1.4-6.5); NEUT% 64.3 % (42.2-75.2); PLT 220 X1000 (130-400); RBC 3.13 XMIL (4.2-5.4); RDW 14.6 % (11.5-14.5); WBC 12.12 X1000 (4.8-10.8)
[2019-10-28 08:32] LABS: ALB/GLOB RATIO 0.8; ALBUMIN 2.5 g/dL (3.5-5.0); CREATININE 1.4 mg/dL (0.5-0.9); MAGNESIUM 1.8 mg/dL (1.5-2.7); TOTAL BILIRUBIN 0.32 mg/dL (0.20-1.00); TOTAL PROTEIN 5.6 g/dL (6.3-8.3)
[2019-10-28] MEDS: FORTICAL NAS SCH (10:09)
[2019-10-28] MEDS: ATIVAN PO SCH ×3 (10:10→18:45)
[2019-10-28] MEDS: ASPIRIN EC PO SCH (10:10)
[2019-10-28] MEDS: THERA M PLUS PO SCH (10:10)
[2019-10-28] MEDS: CALTRATE 600 + D PO SCH ×2 (10:11→20:23)
[2019-10-28] MEDS: KLOR-CON PO SCH ×2 (10:11→20:23)
[2019-10-28] MEDS: COLACE PO SCH ×2 (10:11→20:23)
[2019-10-28] MEDS: MS CONTIN PO SCH ×2 (10:12→20:41)
[2019-10-28] MEDS: PLENDIL PO SCH (10:12)
[2019-10-28] MEDS: PREDNISONE PO SCH ×2 (10:12→10:13)
[2019-10-28] MEDS: NEURONTIN PO SCH ×3 (10:12→18:46)
[2019-10-28] MEDS ORDERED: PREDNISONE PO ONE (10:56)
[2019-10-28] MEDS: NS 500 ML IV SCH ×2 (11:34→18:53)
[2019-10-28] MEDS: PROTONIX IV SCH (18:34)
[2019-10-28] MEDS ORDERED: ATIVAN IV PRN (18:47)
--- NOTE | 2019-10-28 18:59 | PROGRESS NOTE ---
DATE: 10/28/2019 SUBJECTIVE: Ms. Phillip is doing fair. The patient has some chest congestion, cough. No high- grade fever or chills. Oral intake is poor. Her history part was limited. At times, patient was drowsy. Yesterday, patient had some pulmonary congestion and received IV Lasix. This morning, her blood pressure was low-normal. When I evaluated the patient, the patient was sleeping, but talking to me fairly well, easily arousable. OBJECTIVE: vital signs: Blood pressure 78/44, pulse 84, respirations 12, temperature 99.7 degrees. skin: Senile turgor. Neck: Supple. No JVD. Lungs: Bibasilar crepitation. Heart: S1 and S2 heard, 2/6 systolic murmur at the apex. Abdomen: Soft, globular. Bowel sounds present. Central nervous system: Alert, awake. Answering questions fair. Able to move all 4 limbs. Patient does have dementia and confusion. LABORATORY AND DIAGNOSTIC DATA: Done today: WBC count 12.12, hemoglobin 8.8, hematocrit 30, platelet count 220,000. Her electrolytes, BUN 14, creatinine 1.41. Chest x-ray done yesterday, did reveal pleural effusion and pulmonary edema. CONSIDERATIONS: The patient's problems include: 1. Bronchopneumonia. Possible metastatic lung disease. Could be due to gastrointestinal malignancy. 2. Dementia. 3. Chronic pain. 4. Anemia, most likely of chronic disease. 5. Overall prognosis fair to guarded. Patient is on broad-spectrum antibiotics, pain management, and supportive care, which we will continue. cc: Richard Obando MD
[2019-10-28] MEDS: METAMUCIL POWDER PACKET PO SCH (20:23)
[2019-10-28] MEDS: REMERON PO SCH (20:25)
[2019-10-28] MEDS: ZOLOFT PO SCH (20:25)
[2019-10-28] MEDS: DIFLUCAN 200 MG/NS 200 MG/100 ML IVPB IV SCH (23:19)
[2019-10-29] MEDS: MORPHINE IV PRN ×3 (00:23→22:12)
[2019-10-29] MEDS: DIFLUCAN 200 MG/NS 200 MG/100 ML IVPB IV SCH ×2 (00:34→22:11)
[2019-10-29] MEDS: NS 500 ML IV SCH ×4 (00:54→18:43)
[2019-10-29] MEDS: ZOSYN 3.375 GM in NS 50 ML IV SCH ×4 (00:57→17:40)
[2019-10-29] MEDS: DUONEB (A & A) INH SCH ×5 (03:25→19:20)
[2019-10-29] MEDS: LOVENOX SUBQ SCH (07:41)
[2019-10-29] MEDS: MUCOMYST 20% INH SCH ×2 (08:00→19:30)
[2019-10-29] MEDS: CALTRATE 600 + D PO SCH ×2 (09:21→23:37)
[2019-10-29] MEDS: KLOR-CON PO SCH ×2 (09:22→23:42)
[2019-10-29] MEDS: THERA M PLUS PO SCH (09:22)
[2019-10-29] MEDS: ASPIRIN EC PO SCH (09:22)
[2019-10-29] MEDS: MS CONTIN PO SCH ×2 (09:22→23:37)
[2019-10-29] MEDS: COLACE PO SCH ×2 (09:22→23:41)
[2019-10-29] MEDS: PREDNISONE PO SCH (09:22)
[2019-10-29] MEDS: NEURONTIN PO SCH ×3 (09:23→17:40)
[2019-10-29] MEDS ORDERED: LASIX IV ONE (10:24)
--- NOTE | 2019-10-29 11:36 | PROGRESS NOTE ---
DATE: 10/29/2019 SUBJECTIVE: The patient is confused. When I ask her questions, she talks about other things and then falls back to sleep. Family members are around the bedside. I talked with them. One daughter is Power of Distribution Center Administrator. The patient is a DO NOT RESUSCITATE level 1. She does not want anything but comfort measures, and she does not want medications. She says the patient is not eating now. There have been some questions about whether she could have a recurrence of her GI malignancy as she had a malignancy 15 or 16 years ago apparently. She now comes in with pneumonia, history of congestive heart failure. Last chest x-ray showed bilateral pleural effusions and opacities throughout the lung bhandari that were worse on the last chest x-ray than on the preceding ones. Family thinks that she is ready to meet her maker. OBJECTIVE: Vital Signs: Blood pressure is 111/52, respirations 19, pulse 91, oxygen saturation is 96% on 3 L, temp 97.6 degrees Fahrenheit. HEENT: She is normocephalic. EOMs intact. JAREN. Throat clear. Lungs: Scattered rhonchi. Heart: Regular rate and rhythm. Abdomen: Soft with a little mild tenderness diffusely. ASSESSMENT: 1. Pneumonia. 2. Congestive heart failure. 3. Dementia. 4. History of gastrointestinal malignancy. PLAN: Will give her 40 of Lasix IV just to see if it helps the rhonchi. Otherwise, we will continue antibiotics and comfort care. cc: MD Richard Palma Jr, MD
[2019-10-29] MEDS ORDERED: LASIX ONE (16:01)
[2019-10-29] MEDS: DOXYCYCLINE PO SCH ×2 (16:04→23:41)
[2019-10-29] MEDS: SODIUM CHLORIDE 0.9% INJ SCH (17:40)
[2019-10-29] MEDS: PROTONIX IV SCH (17:41)
[2019-10-29] MEDS: NORCO-7.5 PO PRN (17:51)
[2019-10-29] MEDS: REMERON PO SCH (23:41)
[2019-10-29] MEDS: ZOLOFT PO SCH (23:41)
[2019-10-29] MEDS: METAMUCIL POWDER PACKET PO SCH (23:42)
[2019-10-30] MEDS: DUONEB (A & A) INH SCH ×4 (00:05→11:29)
[2019-10-30] MEDS: ZOSYN 3.375 GM in NS 50 ML IV SCH ×2 (01:53→05:19)
[2019-10-30] MEDS: LOVENOX SUBQ SCH (05:19)
[2019-10-30] MEDS: MUCOMYST 20% INH SCH (07:59)
--- NOTE | 2019-10-30 08:56 | Diag Imaging Result Doc PS360 ---
EXAM: CHEST-2 VIEWS INDICATION: follow up on pna TECHNIQUE: 2 views COMPARISON: 10/27/2019 FINDINGS: Inspiration is suboptimal similar to the previous study. There has been interval improvement of pulmonary venous congestion and edema as compared to the previous study. There are persistent pleural effusions seen posteriorly. They have probably reduced in size, however. The cardiac silhouette is stable. IMPRESSION: Interval improvement of pulmonary edema. Electronically signed by Virgil Cohn 10/30/2019 8:54 AM
[2019-10-30] MEDS: MORPHINE IV PRN (10:31)
[2019-10-30 11:41] VITALS: BP 139/51
--- NOTE | 2019-10-30 12:42 | DISCHARGE SUMMARY ---
ADMISSION DATE: 10/22/2019 DISCHARGE DATE: FINAL DISCHARGE DIAGNOSES: 1. Bronchopneumonia. 2. Gastrointestinal malignancy, source not known. 3. Urinary tract infection. 4. Hypertension. 5. Chronic obstructive pulmonary disease. 6. Hyperlipidemia. 7. Dementia. 8. Delirium. 9. Polymyalgia rheumatica. 10. Osteoarthritis. 11. Gastritis. 12. Congestive heart failure. HISTORY OF PRESENT ILLNESS/HOSPITAL COURSE: Ms Phillip is an 88-year-old white female patient, resident of [facility], admitted with chest congestion, cough, fevers, chills. The patient did have mild shortness of breath. She had soreness when she coughed. The patient does have chronic pain. Evaluated by ER physician. Patient found to have bronchopneumonia and UTI. The patient does have dementia. The patient was admitted, started on IV antibiotics. Initially we gave her steroid bronchodilator treatment, IV fluid. Initial hospital course complicated by increasing agitation and delirium. Her steroid was discontinued. The patient did fair. Her oral intake was poor. The patient continued to have chronic pain. I optimized pain management. I did CT scan of the chest and abdomen. CT of the abdomen and pelvis and chest results reviewed, which reveal multiple nodular airspace opacity throughout both the lungs, bibasilar mucous plugging, constipation. There was possibility of secondary malignancy in the lung. I did a CEA level which was elevated. Overall plan discussed with the family. They requested comfort care only. Patient was not getting better. She had dementia, at times agitation, more confusion. Her oral intake was poor. The patient received maximum benefit of hospitalization. The patient and family does not want any feeding tube. They requested comfort care only. I stopped her routine medicine and discharged the patient back to intermediate on comfort care. Family is in agreement. They want to consider hospice, but [facility] does not have hospice backup, but I am going to do hospice care. PHYSICAL EXAMINATION: Vital Signs: Blood pressure 123/61, pulse 87, respirations 12, temperature 98.3 degrees. Lungs: Bibasilar crepitation. Heart: S1 and S2 heard, a 2/6 systolic murmur at the apex. Abdomen: Soft, diffuse abdominal tenderness. No guarding or rigidity. Central Nervous System: Alert, awake, able to move all 4 limbs, but the patient does have confusion. LABORATORY DATA: Last lab data, hemoglobin 8.8, hematocrit 30, platelet count 220,000, WBC count 12.12. Electrolytes, BUN 14 and creatinine 1.4. Her CEA level was 64.8. Chest x-ray results reviewed. Urine grew Escherichia coli, which was ESBL negative. PROGNOSIS: Overall prognosis is poor. Family is aware of the prognosis. I have multiple time discussions with the family about poor prognosis, and they requested comfort care only. DISCHARGE ORDERS: The discharge orders are as per separate sheet. cc: Richard Obando MD
--- NOTE | 2019-11-06 08:44 | DISCHARGE SUMMARY ---
ADMISSION DATE: 10/22/2019 DISCHARGE DATE: 10/30/2019 DISCHARGE SUMMARY ADDENDUM: The patient's presentation does not meet the criteria for sepsis. The patient did have UTI and possible bronchopneumonia. cc: Richard Obando MD
== END 2019-10-30 15:59 | DRG 194 ==
LOC: SUPCPDRO → ED 12:10 → EDIPHOLD 15:06 → 3N 18:26
PROVIDERS: ADMIT Internal Medicine; ATTEND Internal Medicine